=== PATIENT | male | born 2000 | race Caucasian/White ===

== ENCOUNTER 2019-11-16 00:29 | Emergency (ER) | payer OTHER ==
[~2019-11-16] VITALS: Ht 175.3 cm; Wt 61.2 kg
[2019-11-16 00:56] LABS: URINE BILIRUBIN NEGATIVE (Negative); URINE BLOOD NEGATIVE (Negative); URINE COLOR YELLOW; URINE GLUCOSE-RANDOM NEGATIVE (Negative); URINE KETONES NEGATIVE (Negative); URINE LEUKOCYTES-REFLEX NEGATIVE (Negative); URINE NITRITE-REFLEX NEGATIVE (Negative); URINE PROTEIN NEGATIVE (Negative); URINE SPECIFIC GRAVITY 1.015 (1.005-1.030)
[2019-11-16 01:12] LABS: URINE CLARITY SL CLOUDY
[2019-11-16] MEDS ORDERED: FLEXERIL PO (02:18)
[2019-11-16 02:34] VITALS: BP 116/68
== END 2019-11-16 02:47 | disposition home or self-care (01) ==
LOC: M.ERS 00:29
PROVIDERS: Emergency Medicine
DX: R10.32 Left lower quadrant pain (principal); F17.210 Nicotine dependence, cigarettes, uncomplicated

== ENCOUNTER 2020-03-23 07:49 | Emergency (ER) | payer OTHER ==
[~2020-03-23] VITALS: Ht 175.3 cm; Wt 59.0 kg
[~2020-03-23 07:49] MED LIST: FLEXERIL PO
[2020-03-23 09:19] VITALS: BP 121/31
== END 2020-03-23 09:20 | disposition home or self-care (01) ==
LOC: M.ERS 07:49
DX: S20.212A Contusion of left front wall of thorax, initial encounter (principal); W18.39XA Other fall on same level, initial encounter; Y93.67 Activity, basketball; Y92.89 Other specified places as the place of occurrence of the external cause; Y99.8 Other external cause status

== ENCOUNTER 2020-08-20 03:25 | Emergency (ER) | payer OTHER ==
[~2020-08-20] VITALS: Ht 177.8 cm; Wt 63.5 kg
[2020-08-20 03:50] LABS: ABSOLUTE BASOPHILS 0.1 thou/uL (0.0-0.2); ABSOLUTE EOSINOPHILS 0.3 thou/uL (0.0-0.7); ABSOLUTE LYMPHOCYTES 2.3 thou/uL (0.8-5.3); ABSOLUTE MONOCYTES 0.9 thou/uL (0.0-1.2); ABSOLUTE NEUTROPHILS 7.5 thou/uL (1.6-8.1); BASOPHILS 0.6 %; EOSINOPHILS 2.7 %; HEMATOCRIT 46.2 % (42.0-52.0); HEMOGLOBIN 16.6 gm/dL (14.0-18.0); LYMPHOCYTES 20.7 %; MCH 32.4 pg (26.0-34.0); MCHC 35.9 g/dL (28.0-37.0); MCV 90.3 fL (80.0-100.0); MONOCYTES 8.1 %; NUCLEATED RBCS 0 /100WBC; PLATELET COUNT* 237 thou/uL (150-400); POLYS 67.9 %; RBC 5.12 mil/uL (4.50-6.00); RDW-CV 13.9 % (10.5-14.5)
[2020-08-20 04:02] LABS: CALCIUM 8.8 mg/dL (8.5-10.1); POTASSIUM 3.4 mmol/L (3.5-5.1)
[2020-08-20 04:08] LABS: URINE BILIRUBIN NEGATIVE (Negative); URINE BLOOD TRACE (Negative); URINE CLARITY CLEAR; URINE COLOR YELLOW; URINE GLUCOSE-RANDOM NEGATIVE (Negative); URINE KETONES NEGATIVE (Negative); URINE LEUKOCYTES-REFLEX TRACE (Negative); URINE NITRITE-REFLEX NEGATIVE (Negative); URINE PROTEIN NEGATIVE (Negative); URINE UROBILINOGEN 0.2 E.U./dl (0.2-1.0)
[2020-08-20 04:12] LABS: ALBUMIN 4.2 g/dL (3.4-5.0); TOTAL BILIRUBIN 0.3 mg/dL (<0.1-1.0); TOTAL PROTEIN 7.4 g/dL (6.4-8.2)
[2020-08-20 04:15] LABS: AMP/METHAMP Negative (Negative); BARBITURATES Negative (Negative); BENZODIAZEPINES Negative (Negative); COCAINE Negative (Negative); METHADONE Negative (Negative); OPIATES Negative (Negative); PCP Negative (Negative); THC Negative (Negative)
[2020-08-20 06:07] LABS: BACTERIA-REFLEX 1-9 Few /HPF (None Seen); CASTS None Seen /LPF (None Seen); CRYSTALS None Seen /LPF (None Seen); MUCUS 0-3 Light strn/LPF (None Seen); SQUAMOUS 0-3 Few /LPF (0-3); URINE RBC 3-10 Few /HPF (0-2); URINE WBC-REFLEX 0-5 Rare /HPF (0-5)
[2020-08-20 07:21] VITALS: BP 95/35
== END 2020-08-20 07:22 | disposition home or self-care (01) ==
LOC: M.ERS 03:25
PROVIDERS: Personal Emergency Response Attendant
DX: F10.129 Alcohol abuse with intoxication, unspecified (principal); Y90.4 Blood alcohol level of 80-99 mg/100 ml; F13.10 Sedative, hypnotic or anxiolytic abuse, uncomplicated

== ENCOUNTER 2021-11-09 13:27 | Emergency (ER) | payer OTHER ==
[~2021-11-09] VITALS: Ht 175.3 cm; Wt 59.0 kg
[2021-11-09] MEDS ORDERED: FLEXERIL PO (15:22)
[2021-11-09 15:35] VITALS: BP 119/64
--- NOTE | 2021-11-09 15:37 | EKG ---
[place] [address] ELECTROCARDIOGRAM REPORT Name: ALIYAH SADLER Room: [facility]#: [id number] Admission: 11/09/21 Attend Phys: Discharge: 11/09/21 Date of : 89 Date of Service: 11/09/21 1418 Report #: [id number] THIS REPORT FOR: //name// [facility] ED Test Date: 2021-11-09 Test Time: 14:18:33 Pat Name: ALIYAH SADLER Department: Room: Gender: Manager Valuation: [facility] : 2000 Requested By: Misael Mendes Order Number: [id number] : Virgilio Salazar Measurements Intervals [place] Rate: 51 P: 58 MO: 155 QRS: 21 QRSD: 83 T: 56 QT: 402 QTc: 371 Interpretive Statements Sinus rhythm RSR' in V1 or V2, right VCD No previous ECG available for comparison Electronically Signed On 11-09-2021 15:37:11 ELECTRICIAN TELEPHONE by Virgilio Salazar [email or web address] <ELECTRONICALLY SIGNED> By: Virgilio Salazar MD, [facility] 11/09/21 1537 1418 1418 Virgilio Salazar MD, [facility] /EPI
== END 2021-11-09 15:36 | disposition home or self-care (01) ==
LOC: M.ERS 13:27
DX: R07.89 Other chest pain (principal); H92.02 Otalgia, left ear; V49.88XA Car occupant (driver) (passenger) injured in other specified transport accidents, initial encounter; Y93.89 Activity, other specified; Y92.413 State road as the place of occurrence of the external cause; Y99.9 Unspecified external cause status